=== PATIENT | female | born 1990 | race Caucasian/White ===

== ENCOUNTER 2020-06-11 20:00 | Outpatient (CLI) | payer OTHER, SELFPAY | END 2020-06-11 20:01 | disposition home or self-care (01) | LOC: SLEEP 06-12 12:08 | PROVIDERS: PCP Family Medicine; Visit Provider Family Medicine | DX: G47.33 Obstructive sleep apnea (adult) (pediatric) (principal); R06.83 Snoring; R53.83 Other fatigue | CPT/HCPCS: 95810 ==

== ENCOUNTER 2023-01-16 20:00 | Outpatient (CLI) | payer OTHER, SELFPAY | END 2023-01-16 20:01 | disposition home or self-care (01) | LOC: SLEEP 01-17 05:00 | PROVIDERS: PCP Family Medicine; Visit Provider Specialist | DX: G47.33 Obstructive sleep apnea (adult) (pediatric) (principal) | CPT/HCPCS: 95811 ==